=== PATIENT | female | born 1990 | race Caucasian/White ===

== ENCOUNTER 2017-12-25 20:56 | Emergency (ER) | payer OTHER ==
[2017-12-25 21:04] VITALS: RESP 16; TEMP 98.1; O2SAT 100
[2017-12-25] MEDS ORDERED: Sodium Chloride 0.9% 1,000 ML IV STA (21:56)
[2017-12-25 22:20] LABS: INFLUENZA A B NEGATIVE FOR FLU A/B (NEGATIVE)
[2017-12-25 22:36] LABS: BASO # 0.03 K/mm3 (0.0-2.0); BASO % 0.3 % (0.0-3.0); EOS # 0.1 (0.0-0.7); EOS % 0.8 % (1.5-5.0); GRAN # 7.83 (1.4-6.5); GRAN % 75.1 % (50.0-68.0); LYMPH % 18.8 % (22.0-35.0); MEAN CELL VOLUME 86.3 fl (80.0-105.0); MEAN CORPUSCULAR HEMOGLOBIN 28.8 pg (25.0-35.0); MEAN CORPUSCULAR HGB CONC 33.4 g/dl (31.0-37.0); MEAN PLATELET VOLUME 10.1 fl (7.0-11.0); MONO # 0.5 (0.1-0.6); RBC 4.51 10^6/uL (3.5-6.1); WHITE BLOOD COUNT 10.4 10^3/ul (4.5-11.0)
[2017-12-25 22:37] LABS: URINE APPEARANCE CLEAR (CLEAR); URINE BILIRUBIN NEGATIVE (NEGATIVE); URINE BLOOD SMALL (NEGATIVE); URINE COLOR YELLOW (YELLOW); URINE GLUCOSE (UA) NEGATIVE (NEGATIVE); URINE LEUKOCYTE ESTERASE LARGE Leu/uL (NEGATIVE); URINE NITRATE NEGATIVE (NEGATIVE); URINE PROTEIN NEGATIVE mg/dL (<30 mg/dL); URINE UROBILINOGEN 0.2 E.U./dL (<1 E.U./dL)
[2017-12-25] MEDS ORDERED: cefTRIAXone 1 gm 1 GM/100 ML BAG IVPB STA (22:38)
[2017-12-25 22:40] LABS: ALB/GLOB RATIO 1.1 (1.1-1.8); ALT/SGPT 31 U/L (7-56); AST/SGOT 24 U/L (14-36); BLOOD UREA NITROGEN 12 mg/dL (7-21); CALCIUM 10.1 mg/dL (8.4-10.5); GFR AFRICAN-AMERICAN > 60; GFR NON-AFRICAN AMERICAN > 60; INR 1.02 (0.93-1.08); PROTHROMBIN TIME 11.6 SECONDS (9.4-12.5)
[2017-12-25 22:48] LABS: URINE RBC 0 - 2 /hpf (0-2)
--- NOTE | 2017-12-25 22:49 | ED PDOC ---
Arrival/HPI - General Chief Complaint: Fever Time Seen by Provider: 12/25/17 21:07 Historian: Patient - History of Present Illness Narrative History of Present Illness (Text): 12/25/17 22:45 27yo female with no PMHx present with complaint of generalized bodyache, fever since last night. Patient report Tmax of 102 today. States states she took Ibuprofen 400mg this evening. She notes recent vaginal delivery 3weeks ago. She denies any focal pain, cough, sore throat, sick contact, abdominal pain, any other complaint. Past Medical History - Provider Review Nursing Documentation Reviewed: Yes - Cardiac Hx Cardiac Disorders: No - Pulmonary Hx Respiratory Disorders: No - Neurological Hx Neurological Disorder: No - HEENT Hx HEENT Disorder: No - Renal Hx Renal Disorder: No - Endocrine/Metabolic Hx Endocrine Disorders: No - Hematological/Oncological Hx Blood Disorders: Yes Hx Anemia: Yes - Integumentary Hx Dermatological Disorder: No - Musculoskeletal/Rheumatological Hx Musculoskeletal Disorders: No - Gastrointestinal Hx Gastrointestinal Disorders: No - Genitourinary/Gynecological Hx Genitourinary Disorders: No - Psychiatric Hx Psychophysiologic Disorder: No Hx Substance Use: No Family/Social History - Physician Review Nursing Documentation Reviewed: Yes Family/Social History: Unknown Family HX Smoking Status: Never Smoked Hx Alcohol Use: No Hx Substance Use: No Allergies/Home Meds Allergies/Adverse Reactions: Allergies No Known Allergies Allergy (Verified 12/25/17 20:58) Review of Systems - Physician Review All systems were reviewed & negative as marked: Yes - Review of Systems Constitutional: Fatigue, Fevers Eyes: Normal ENT: Normal Respiratory: Normal Cardiovascular: Normal Gastrointestinal: Normal Genitourinary Female: Normal Musculoskeletal: Normal Skin: Normal Neurological: Normal Endocrine: Normal Hemo/Lymphatic: Normal Psychiatric: Normal Physical Exam Vital Signs Reviewed: Yes Vital Signs Temp Pulse Resp BP Pulse Ox 12/25/17 23:06 81 16 112/87 100 12/25/17 21:03 98.1 F 106 H 16 106/67 100 Temperature: Afebrile Blood Pressure: Normal Pulse: Tachycardic Respiratory Rate: Normal Appearance: Positive for: Well-Appearing, Non-Toxic, Comfortable Pain Distress: None Mental Status: Positive for: Alert and Oriented X 3 - Systems Exam Head: Present: Atraumatic, Normocephalic Pupils: Present: PERRL Extroacular Muscles: Present: EOMI Conjunctiva: Present: Normal Mouth: Present: Moist Mucous Membranes Neck: Present: Normal Range of Motion Respiratory/Chest: Present: Clear to Auscultation, Good Air Exchange. No: Respiratory Distress, Accessory Muscle Use Cardiovascular: Present: Regular Rate and Rhythm, Normal S1, S2. No: Murmurs Abdomen: Present: Normal Bowel Sounds, Other (Soft). No: Tenderness, Distention , Peritoneal Signs, Rebound, Guarding, McBurney's Point Tender, Rovsing's Sign Present Back: Present: Normal Inspection Upper Extremity: Present: Normal Inspection. No: Cyanosis, Edema Lower Extremity: Present: Normal Inspection. No: Edema Neurological: Present: GCS=15, CN II-XII Intact, Speech Normal Skin: Present: Warm, Dry, Normal Color. No: Rashes Psychiatric: Present: Alert, Oriented x 3, Normal Insight, Normal Concentration Medical Decision Making ED Course and Treatment: 12/25/17 23:41 27yo female in ED for fever and bodyache she was hemodynamically stable in ED. Her lab was unremarkable. Rapid flu negative. she was treated with Rocephin in ED for UTI and DC home with Amox. she is currently breast feeding. Result was DW the pt. She was advised to drink plenty of fluid. Referred to her PMD/OB. TRT ED for any new or worsening symptoms. - Lab Interpretations Lab Results: 12/25/17 22:20 12/25/17 22:20 Lab Results 12/25/17 22:20: Sodium 134, Potassium 4.0, Chloride 97 L, Carbon Dioxide 24, Anion Gap 16, BUN 12, Creatinine 0.7, Est GFR ( Amer) > 60, Est GFR (Non- Af Amer) > 60, Random Glucose 110, Calcium 10.1, Total Bilirubin 0.4, AST 24, ALT 31, Alkaline Phosphatase 81, Total Protein 7.7, Albumin 4.0, Globulin 3.7, Albumin/Globulin Ratio 1.1 12/25/17 22:20: Urine Color Yellow, Urine Appearance Clear, Urine pH 6.0, Ur Specific Catherine <= 1.005, Urine Protein Negative, Urine Glucose (UA) Negative, Urine Ketones Trace H, Urine Blood Small H, Urine Nitrate Negative, Urine Bilirubin Negative, Urine Urobilinogen 0.2, Ur Leukocyte Esterase Large H, Urine RBC 0 - 2, Urine WBC 1 - 3, Ur Epithelial Cells None 12/25/17 22:20: PT 11.6, INR 1.02, APTT 28.0 12/25/17 22:20: WBC 10.4, RBC 4.51, Hgb 13.0, Hct 38.9, MCV 86.3, MCH 28.8, MCHC 33.4, RDW 15.0 H, Plt Count 211, MPV 10.1, Gran % 75.1 H, Lymph % (Auto) 18.8 L, [place] % (Auto) 5.0, Eos % (Auto) 0.8 L, Baso % (Auto) 0.3, Gran # 7.83 H , Lymph # (Auto) 2.0, [place] # (Auto) 0.5, Eos # (Auto) 0.1, Baso # (Auto) 0.03 12/25/17 21:59: Influenza Typ A,B (EIA) Negative for flu a/b, Grp A Beta Strep Ag Negative - Medication Orders Current Medication Orders: Discontinued Medications Sodium Chloride (Sodium Chloride 0.9%) 1,000 mls @ 999 mls/hr IV .Q1H1M STA Stop: 12/25/17 22:56 Last Admin: 12/25/17 22:43 Dose: 999 mls/hr eMAR Start Stop Document 12/25/17 22:43 HI (Rec[facility] 12[facility]25[facility]17 [id number] Intravenous Solution Start Date 12/25/17 Start Time 22:43 Ceftriaxone Sodium (Rocephin 1 Gram Ivpb) 1 gm in 100 mls @ 200 mls/hr IVPB STAT STA PRN Reason: Protocol Stop: 12/25/17 23:07 Last Admin: 12/25/17 22:47 Dose: 200 mls/hr eMAR Start Stop Document 12/25/17 22:47 HI (Rec: 12/25/17 22:47 [id number]) Intravenous Solution Start Date 12/25/17 Start Time 22:47 Disposition/Present on Arrival - Present on Arrival Any Indicators Present on Arrival: No History of DVT/PE: No History of Uncontrolled Diabetes: No Urinary Catheter: No History of Decub. Ulcer: No History Surgical Site Infection Following: None - Disposition Have Diagnosis and Disposition been Completed?: Yes Diagnosis: UTI (urinary tract infection) Disposition: HOME/ ROUTINE Disposition Time: 22:50 Patient Plan: Discharge Condition: STABLE Discharge Instructions (ExitCare): Urinary Tract Infections in Adults Additional Instructions: Follow up with your Doctor Drink plenty of fluid Return to ED for any new or worsening symptom Prescriptions: Amoxicillin 875 mg PO BID #14 tablet Referrals: PCP,NO [Primary Care Provider] - Follow up with primary [facility] [place] [Outside] - Follow up with primary Forms: bepretty (Setswana)
[2017-12-25 23:08] VITALS: BP 112/87; PULSE 81
== END 2017-12-25 23:29 | disposition home or self-care (01) ==
LOC: ED 20:56
DX: N39.0 Urinary tract infection, site not specified (principal)
CPT/HCPCS: 80053; 81001; 85025; 85610; 85730; 87070; 87086; 87430; 87804; 96374; 99284; J0696; J7040